=== PATIENT | male | born 1995 | race Two or more races ===

== ENCOUNTER 2023-04-30 20:50 | Emergency (ER) | payer OTHER, MEDICAID ==
[~2023-04-30] VITALS: Ht 167.6 cm; Wt 65.8 kg
[2023-04-30 21:02] VITALS: TEMP 98.7
[2023-04-30 21:19] VITALS: BP 151/78; O2SAT 100
== END 2023-04-30 21:20 ==
LOC: ER 20:52
DX: R45.851 Suicidal ideations (principal)